=== PATIENT | male | born 1935 | race Caucasian/White ===

== ENCOUNTER 2016-11-10 20:10 | Emergency (ER) | payer MEDICARE ==
[~2016-11-10] VITALS: Ht 180.3 cm; Wt 94.3 kg
[~2016-11-10 20:10] MED LIST: AMLO5TAB2 PO; ASP81CT PO; CHLR25C PO; CHOL10003 PO; DCS100C PO; DILT120T11 PO; FAMO20TA5 PO; ISM30TCR PO; LVT.05T PO; POLY17PO23 PO; SLMFT1E INH; SYNTHROID; TERA5CAP10 PO
--- OUTSIDE RECORDS SUMMARY | 2016-11-10 20:15 | XMS REPORT | Continuity of Care Document ---
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 If you do not see the information that you expected, contact Release of Information in the Health Information Management department at [phone] for further assistance in locating additional records.[facility] Active Allergies and Adverse Reactions Not on File Current Medications Not on file Active Problems Not on file Social History Tobacco Use Types Packs/Day Years Used Date Never Assessed Plan of Care Health Maintenance Due Date Last Done Comments Physical (Comprehensive) 1942 Exam Pertussis Vaccine 1946 Tetanus Vaccine 1952 Shingles Vaccine 1995 Prevnar/Pneumovax (#1) 2000 Influenza Vaccine 06/29/2015 Results from Last 3 Months Not on file
--- NOTE | 2016-11-10 20:23 | ED GI ---
General Chief Complaint: Abdominal/GI Problems Stated Complaint: CONSTIPATION Source of Information: Patient Exam Limitations: No Limitations History of Present Illness Time Seen By Provider: 20:21 Initial Comments to ER with reports of constipation and no significant bowel movement for one week. He attempted digital disimpaction at home this evening and had only a small bowel movement thereafter. He has hemodialysis at [facility] Sunday and had his dialysis today. Fistula on the left arm. Upon arrival to the emergency room he is noted to be febrile at 101.4. He denies abdominal pain. He states that he has had intermittent fevers for the past few days and has also had some weakness in both of his legs. Timing/Duration: 1 Week Severity/Quality: Moderate Radiation: No Radiation Activities at Onset: None Associated Symptoms: No Fever/Chills, No Nausea/Vomiting Allergies and Home Medications Allergies Coded Allergies: NKANo Known Allergies (Verified Allergy, Unknown, 12/03/05) Home Medications Amlodipine Besylate 10 Mg Tablet 10 MG PO DAILY (Reported) Aspirin 81 Mg Chew 81 MG PO DAILY (Reported) Carvedilol 25 Mg Tab 25 MG PO BID (Reported) Chlordiazepoxide Hcl 25 Mg Capsule 25 MG PO HS (Reported) Levothyroxine Sodium 50 Mcg Tablet 50 MCG PO DAILY (Reported) Omeprazole Magnesium 20 Mg Tablet.dr 40 MG PO DAILY (Reported) Polyethylene Glycol 17 Gm Pack 17 GM PO DAILY (Reported) Umeclidinium Brm/Vilanterol Tr 1 Each Blst.w.dev 1 EACH IH (Reported) Review of Systems Constitutional: see HPINo chills EENTM: No Symptoms Reported Respiratory: No Symptoms ReportedDenies Cough Cardiovascular: No Symptoms ReportedDenies Chest Pain Gastrointestinal: See HPI Abdomen DistendedDenies Abdominal Pain, Denies Blood Streaked Stools, ConstipatedDenies Diarrhea, Denies Nausea Genitourinary: No Symptoms Reported Musculoskeletal: no symptoms reported Skin: no symptoms reported Psychiatric/Neurological: No Symptoms Reported Endocrine: No Symptoms Reported Hematologic/Lymphatic: No Symptoms Reported Past Jvrdltu-Qvhgpk-Wjthse Hx Patient Social History Recent Foreign Travel: No Contact w/Someone Who Travel: No Immunizations Up To Date Tetanus Booster (TDap): More than 5yrs PED Vaccines UTD: Yes Date of Pneumonia Vaccine: Apr 02, 2011 Date of Influenza Vaccine: Jul 29, 2012 Surgeries HX Surgeries: Yes Respiratory Hx Respiratory Disorders: Yes Respiratory Disorders: Pneumonia, COPD Cardiovascular Hx Cardiac Disorders: Yes (renal artery aneurysm, h/o high cholesterol but not currently) Neurological Hx Neurological Disorders: No Reproductive System Hx Reproductive Disorders: No Sexually Transmitted Disease: No HIV/AIDS: No Genitourinary Hx Genitourinary Disorders: Yes Genitourinary Disorders: Renal Failure Gastrointestinal Hx Gastrointestinal Disorders: Yes (umbilical hernia) Musculoskeletal Hx Musculoskeletal Disorders: Yes (arthritis in back and neck) Musculoskeletal Disorders: Arthritis Endocrine Hx Endocrine Disorders: Yes (on synthroid) Endocrine Disorders: Hypothyroidsim HEENT HX ENT Disorders: Yes (wears glasses, has hearing aide but it isn't working) HEENT Disorders: Cataract Hearing Impairment: Hard of Hearing Cancer Hx Cancer: No Psychosocial Hx Psychiatric Problems: No (once dx with bipolar since dx has been changed hasn't taken any bipolar med) Integumentary HX Skin/Integumentary Disorder: No Blood Transfusions Hx Blood Disorders: No Physical Exam Vital Signs VS - Last 72 Hours, by Label 11/10/16 20:18 Temp 101.1 Pulse 86 Resp 18 B/P 168/74 Pulse Ox 97 Capillary Refill : General Appearance: WD/WN no apparent distress HEENT: PERRL/EOMI normal ENT inspection Neck: non-tender full range of motion Respiratory: no respiratory distress no accessory muscle use crackles (LLL) Cardiovascular: regular rate, rhythm Gastrointestinal: non tender soft abnormal bowel sounds (hypoactive) Extremities: normal range of motion non-tender Neurologic/Psychiatric: alert normal mood/affect oriented x 3 Skin: normal color warm/dry Progress/Results/Core Measures Results/Orders Lab Results Laboratory Tests Test 11/10/16 20:34 11/10/16 20:35 Range/Units Alanine Aminotransferase (ALT/SGPT) 30 0-55 U/L Albumin 3.5 3.2-4.5 G/DL Alkaline Phosphatase 58 40-136 U/L Anion Gap 16 H 5-14 MMOL/L Aspartate Amino Transf (AST/SGOT) 27 5-34 U/L BUN/Creatinine Ratio 7 Basophils # (Auto) 0.0 0.0-0.1 10^3/uL Basophils (%) (Auto) 0 0-10 % Blood Urea Nitrogen 29 H 7-18 MG/DL Calcium Level 8.8 8.5-10.1 MG/DL Carbon Dioxide Level 24 21-32 MMOL/L Chloride Level 98 98-107 MMOL/L Creatinine 4.23 H 0.60-1.30 MG/DL Eosinophils # (Auto) 0.3 0.0-0.3 10^3/uL Eosinophils (%) (Auto) 3 0-10 % Estimat Glomerular Filtration Rate 14 Glucose Level 189 H 70-105 MG/DL Hematocrit 31 L 40-54 % Hemoglobin 10.1 L 13.3-17.7 G/DL Lactic Acid Level 2.2 *H 0.5-2.0 MMOL/L Lymphocytes # (Auto) 1.0 1.0-4.0 X 10^3 Lymphocytes (%) (Auto) 9 L 12-44 % Mean Corpuscular Hemoglobin 32 25-34 PG Mean Corpuscular Hemoglobin Concent 33 32-36 G/DL Mean Corpuscular Volume 96 80-99 FL Mean Platelet Volume 8.9 7.4-10.4 FL Monocytes # (Auto) 0.9 0.0-1.0 X 10^3 Monocytes (%) (Auto) 8 0-12 % Neutrophils # (Auto) 9.1 H 1.8-7.8 X 10^3 Neutrophils (%) (Auto) 81 H 42-75 % Platelet Count 204 130-400 10^3/uL Potassium Level 3.3 L 3.6-5.0 MMOL/L Red Blood Count 3.20 L 4.35-5.85 10^6/uL Red Cell Distribution Width 13.3 10.0-14.5 % Sodium Level 138 135-145 MMOL/L Total Bilirubin 0.4 0.1-1.0 MG/DL Total Protein 6.5 6.4-8.2 G/DL White Blood Count 11.2 H 4.3-11.0 10^3/uL Lipase 31 8-78 U/L Micro Results Microbiology 11/10/16 Influenza Types A,B Antigen (CHRISTINA) - Final, Complete My Orders Orders-RONALDO CULVER SCRAP BURNER Cbc With Automated Diff (11/10/16 20:20) Influenza A And B Antigens (11/10/16 20:20) Chest Pa/Lat (2 View) (11/10/16 20:20) Ct Abdomen/Pelvis Wo (11/10/16 20:20) Ua Culture If Indicated (11/10/16 20:20) Comprehensive Metabolic Panel (11/10/16 20:20) Saline Lock/Iv-Start (11/10/16 20:20) Blood Culture (11/10/16 20:23) Lactic Acid Analyzer (11/10/16 20:23) Acetaminophen Tablet (Tylenol Tablet) (11/10/16 20:30) Lipase (11/10/16 20:57) Cefepime Injection (Maxipime Injection) (11/10/16 21:15) Cefazolin Injection (Ancef Injection) (11/10/16 21:12) Normal Saline (Velasquez Mini) (Ns (Velasquez (11/10/16 21:12) Cefepime Injection (Maxipime Injection) (11/10/16 21:16) Medications Given in ED Current Medications Medications Dose Ordered Sig/Garry Route Start Time Stop Time Status Last Admin Dose Admin Acetaminophen 1000 mg 1,000 mg ONCE ONCE PO 11/10/16 20:30 11/10/16 20:31 DC 11/10/16 20:46 1,000 MG Cefepime HCl/ Sodium Chloride 50 ml @ 100 mls/hr ONCE ONCE IV 11/10/16 21:15 11/10/16 21:44 DC 11/10/16 21:30 100 MLS/HR Vital Signs/I&O Vital Sign - Last 12Hours 11/10/16 20:18 Temp 101.1 Pulse 86 Resp 18 B/P 168/74 Pulse Ox 97 Diagnostic Imaging Diagonstic Imaging: CT Comments NAME: STEFAN BENAVIDEZ [facility] REC#: [id number] PT STATUS: REG ER : 1935 PHYSICIAN: RONALDO CULVER APRN ADMIT DATE: 11/10/16/ER Draft Date of Exam:11/10/16 CT ABDOMEN/PELVIS WO PROCEDURE: CT abdomen and pelvis without contrast. TECHNIQUE: Multiple contiguous axial images were obtained through the abdomen and pelvis without the use of intravenous contrast. INDICATION: Constipation x5 days. FINDINGS: Noncontrasted study shows consolidated infiltrate in the left lower lobe. There is small pleural effusion on the right with right basilar atelectasis. Liver appears normal. The gallbladder is contracted. Pancreas appears normal. The spleen is normal. The adrenal glands are normal. Kidneys show no evidence of obstruction or calculi. The aorta is atherosclerotic with mild ectasia. The stomach is not distended. Small bowel shows normal caliber. The appendix is normal. The colon shows very little stool or gas present. There is no evidence of constipation or ileus. There is no free air or free fluid. Bladder appears normal. IMPRESSION: 1. Findings consistent with left lower lobe pneumonia. Small right pleural effusion and right basilar atelectasis. 2. There is no evidence of ileus or constipation. Dictated on workstation # [id number] Dict: 11/10/162057 Trans: 11/10/162102 ROXANA [id number] Interpreted by: VIKTOR URBANO MD Electronically signed by: NAME: STEFAN BENAVIDEZ [facility] REC#: [id number] PT STATUS: REG ER : 1935 PHYSICIAN: RONALDO CULVER APRN ADMIT DATE: 11/10/16/ER Draft Date of Exam:11/10/16 CHEST PA/LAT (2 VIEW) INDICATION: Shortness of breath. Comparison with 10/16/2014. FINDINGS: There is severe obstructive interstitial lung disease. There is a consolidated infiltrate in the left lower lobe posteriorly. The heart is enlarged. The upper lungs are clear with no evidence of pulmonary edema. No pneumothorax or pleural effusion. IMPRESSION: 1. Rather severe obstructive interstitial lung disease with superimposed left lower lobe pneumonia. 2. Cardiomegaly with no evidence of pulmonary edema Dictated on workstation # [id number] Dict: 11/10/162104 Trans: 11/10/162107 ROXANA [id number] Interpreted by: VIKTOR URBANO MD Electronically signed by: Departure Communication Time/Spoke to Admitting Phy: 21:29 Communication 2128-Spoke with Dr. Santino Barbosa who agrees with transfer to facility with hemodialysis capabilities given patient's hemodialysis requirements. I spoke with Dr. Johnson, hospitalist from [facility] who agrees to accept the patient in transfer and his help is much appreciated. Cefepime 1gm IV has been given here. Patient has a curb 65 score of 2 considered moderate risk with 6.8 percent 30 day mortality. Short inpatient or outpatient with close follow-up would be recommended. Given the patient's COPD history, hemodialysis and this being Sunday night I would prefer inpatient admission as close follow-up cannot be arranged for at least 48 hours. Patient does wear oxygen at 2 L at night to sleep, awake and alert at this time oxygen saturation drops to 88 percent on room air, 93 percent on 2 L. The patient does agree to this plan. He is alert and very pleasant. Patient's CT scan and chest x-ray have been sent via cloud to [facility] 2226- [facility] declines transport due to the weather/icy roads as they're only transporting emergent patients at this time. Mr. benavidez is stable and had dialysis today and would not be receiving anything at [facility] that he could not receive here. 2228-[facility] declines transport due to weather/icy roads. awaiting call from [facility] in [place]. 2235- [facility] from [place] will come get the patient Impression Impression: Primary Impression: Left lower lobe pneumonia Qualified Code: J18.1 - Lobar pneumonia, unspecified organism Additional Impressions: chronic renal failure requiring hemodialysis COPD (chronic obstructive pulmonary disease) Disposition: XF SHT-TRM HOSP Condition: Stable Departure-Patient Inst. Referrals: DON HARRISON DO (PCP/Family) Primary Care Physician Copy Copies To 1: DON HARRISON PETER J APRN Nov 10, 2016 20:23
[2016-11-10] MEDS ORDERED: AMLO10TA2 PO (20:28)
[2016-11-10] MEDS ORDERED: UMEC1BLS IH (20:28)
[2016-11-10] MEDS ORDERED: CRV25T PO (20:28)
[2016-11-10] MEDS ORDERED: OMEP20TA33 PO (20:28)
[2016-11-10] MEDS ORDERED: ACETAMINOPHEN 500 MG TAB (TYLENOL) PO ONE (20:30)
[2016-11-10 20:46] LABS: BASOPHILS % (AUTO) 0 % (0-10); EOSINOPHILS # (AUTO) 0.3 10^3/uL (0.0-0.3); EOSINOPHILS % (AUTO) 3 % (0-10); LYMPHOCYTES % (AUTO) 9 % (12-44); MEAN CORPUSCULAR HEMOGLOBIN 32 PG (25-34); MEAN CORPUSCULAR HGB CONC 33 G/DL (32-36); MEAN CORPUSCULAR VOLUME 96 FL (80-99); MEAN PLATELET VOLUME 8.9 FL (7.4-10.4); MONOCYTES # (AUTO) 0.9 X 10^3 (0.0-1.0); MONOCYTES % (AUTO) 8 % (0-12); NEUTROPHILS # (AUTO) 9.1 X 10^3 (1.8-7.8); NEUTROPHILS % (AUTO) 81 % (42-75); PLATELET COUNT 204 10^3/uL (130-400); RED CELL DISTRIBUTION WIDTH 13.3 % (10.0-14.5); WHITE BLOOD COUNT 11.2 10^3/uL (4.3-11.0)
--- NOTE | 2016-11-10 21:03 | Diagnostic Imaging Report ---
PROCEDURE: CT abdomen and pelvis without contrast. TECHNIQUE: Multiple contiguous axial images were obtained through the abdomen and pelvis without the use of intravenous contrast. INDICATION: Constipation x5 days. FINDINGS: Noncontrasted study shows consolidated infiltrate in the left lower lobe. There is small pleural effusion on the right with right basilar atelectasis. Liver appears normal. The gallbladder is contracted. Pancreas appears normal. The spleen is normal. The adrenal glands are normal. Kidneys show no evidence of obstruction or calculi. The aorta is atherosclerotic with mild ectasia. The stomach is not distended. Small bowel shows normal caliber. The appendix is normal. The colon shows very little stool or gas present. There is no evidence of constipation or ileus. There is no free air or free fluid. Bladder appears normal. IMPRESSION: 1. Findings consistent with left lower lobe pneumonia. Small right pleural effusion and right basilar atelectasis. 2. There is no evidence of ileus or constipation. Dictated by: Dictated on workstation # [id number]
[2016-11-10 21:07] LABS: ALBUMIN 3.5 G/DL (3.2-4.5); BILIRUBIN,TOTAL 0.4 MG/DL (0.1-1.0); CALCIUM 8.8 MG/DL (8.5-10.1); CREATININE SERUM 4.23 MG/DL (0.60-1.30); POTASSIUM 3.3 MMOL/L (3.6-5.0); TOTAL PROTEIN 6.5 G/DL (6.4-8.2)
--- NOTE | 2016-11-10 21:09 | Diagnostic Imaging Report ---
INDICATION: Shortness of breath. Comparison with 10/16/2014. FINDINGS: There is severe obstructive interstitial lung disease. There is a consolidated infiltrate in the left lower lobe posteriorly. The heart is enlarged. The upper lungs are clear with no evidence of pulmonary edema. No pneumothorax or pleural effusion. IMPRESSION: 1. Rather severe obstructive interstitial lung disease with superimposed left lower lobe pneumonia. 2. Cardiomegaly with no evidence of pulmonary edema Dictated by: Dictated on workstation # [id number]
[2016-11-10] MEDS ORDERED: ceFAZolin 1,000 MG (ANCEF) VIAL ONE (21:12)
[2016-11-10] MEDS ORDERED: NORMAL SALINE (BAXTER MINI) 50 ML IV ONE (21:12)
[2016-11-10] MEDS ORDERED: CEFEPIME INJECTION 2,000 MG in NORMAL SALINE (BAXTER MINI) 50 ML IV ONE (21:15)
[2016-11-10] MEDS ORDERED: CEFEPIME HCL 2 GM (MAXIPIME) VIAL ONE (21:16)
[2016-11-10] MEDS ORDERED: chlordiazePOXIDE 25 MG (LIBRIUM) CAP NON-FORMULARY PO ONE (23:00)
[2016-11-10] MEDS ORDERED: CARVEDILOL 12.5 MG (COREG) TABLET PO ONE (23:00)
[2016-11-10] MEDS ORDERED: ASPIRIN 81 MG CHEW (CHILDREN'S ASA) PO ONE (23:00)
[2016-11-10] MEDS ORDERED: lisINopril 10 MG (PRINIVIL) TAB PO ONE (23:00)
[2016-11-10] MEDS ORDERED: CINA30TA2 PO (23:02)
[2016-11-10] MEDS ORDERED: MELA3TAB PO (23:04)
[2016-11-10] MEDS ORDERED: DIPH25CA79 PO (23:04)
[2016-11-10] MEDS ORDERED: DOCU-143 PO (23:04)
[2016-11-10] MEDS ORDERED: LISI10TA2 PO (23:04)
[2016-11-11 00:47] VITALS: BP 125/64
== END 2016-11-11 00:47 | disposition short-term general hospital (02) ==
LOC: EDUNIT# 20:10 → ER 20:11
DX: J18.9 Pneumonia, unspecified organism (principal); J44.9 Chronic obstructive pulmonary disease, unspecified; I51.7 Cardiomegaly; N18.6 End stage renal disease; Z99.2 Dependence on renal dialysis; Z79.82 Long term (current) use of aspirin; Z79.899 Other long term (current) drug therapy
CPT/HCPCS: 36415; 71020; 74176; 80053; 83605; 83690; 85025; 87040; 87804; 96365

== ENCOUNTER → 2017-03-07 | Outpatient (CLI) | payer MEDICARE ==
[~2017-03-07] MED LIST changes: +AMLO10TA2 PO; +CINA30TA2 PO; +CRV25T PO; +DIPH25CA79 PO; +DOCU-143 PO; +LISI10TA2 PO; +MELA3TAB PO; +OMEP20TA33 PO; +UMEC1BLS IH
--- NOTE | 2017-03-07 16:36 | Diagnostic Imaging Report ---
INDICATION: Neck pain. FINDINGS: AP and lateral views of the cervical spine show anterior bridging osteophytes of C2-C3 and at C4-C5 and C5-C6. Alignment is normal. Disc space is well maintained. There is no prevertebral soft tissue swelling. There are no fractures seen. 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 Dictated by: Dictated on workstation # [id number]
--- NOTE | 2017-03-07 16:38 | Diagnostic Imaging Report ---
INDICATION: Chronic back pain. FINDINGS: AP and lateral views of the thoracic spine show bridging osteophytes throughout the thoracic spine. There is slight scoliotic curvature convex to the right. IMPRESSION: Diffuse ossification of the paraspinous ligaments consistent with either ankylosing spondylitis or diffuse idiopathic skeletal hyperostosis. Dictated by: Dictated on workstation # [id number]
--- NOTE | 2017-03-07 16:51 | Diagnostic Imaging Report ---
INDICATION: Chronic back pain. FINDINGS: AP and lateral views of the lumbar spine show anterior bridging osteophytes throughout the lumbar spine. The alignment is normal. The disc spaces are well maintained. IMPRESSION: Diffuse idiopathic skeletal hyperostosis. No acute abnormality is seen. Dictated by: Dictated on workstation # [id number]
== END ==
LOC: RAD 15:34
PROVIDERS: ATTEND Family Medicine
DX: M54.2 Cervicalgia (principal); M54.6 Pain in thoracic spine; M54.5 Low back pain
CPT/HCPCS: 72040; 72072; 72100

== ENCOUNTER 2017-06-22 13:35 | Outpatient (RCR) | payer MEDICARE | END 2017-06-22 16:11 | disposition home or self-care (01) | PROVIDERS: ATTEND Family Medicine | DX: M54.5 Low back pain (principal) ==

== ENCOUNTER 2019-04-28 07:58 | Outpatient (RCR) | payer MEDICARE ==
[~2019-04-28 07:58] MED LIST changes: -AMLO10TA2 PO; +AMLO10TA7 PO
== END 2019-07-27 | disposition home or self-care (01) ==
LOC: RT 07:58
PROVIDERS: ATTEND Family Medicine
DX: I25.10 Atherosclerotic heart disease of native coronary artery without angina pectoris (principal); R53.83 Other fatigue; R06.00 Dyspnea, unspecified

== ENCOUNTER 2019-11-05 15:15 | Outpatient (RCR) | payer MEDICARE ==
[~2019-11-05 15:15] MED LIST changes: -MELA3TAB PO; +MELA3TAB39 PO
[2019-11-20 14:15] VITALS: BP 115/40
[2019-11-20 15:10] VITALS: BP 100/40
[2019-11-25 14:20] VITALS: BP 106/50
[2019-11-25 15:18] VITALS: BP 100/60
[2019-11-27 14:25] VITALS: BP 100/40
[2019-11-27 15:22] VITALS: BP 80/42
[2019-12-02 14:20] VITALS: BP 125/60
[2019-12-02 15:28] VITALS: BP 120/50
[2019-12-04 14:20] VITALS: BP 100/40
[2019-12-04 15:12] VITALS: BP 90/40
[2019-12-09 14:30] VITALS: BP 130/40
[2019-12-09 15:22] VITALS: BP 100/60
[2019-12-11 14:20] VITALS: BP 150/60
[2019-12-11 15:35] VITALS: BP 100/50
[2019-12-16 14:30] VITALS: BP 134/60
[2019-12-16 15:32] VITALS: BP 105/40
[2019-12-18 14:20] VITALS: BP 125/43
[2019-12-18 15:32] VITALS: BP 118/40
[2019-12-23 14:20] VITALS: BP 110/56
[2019-12-23 15:35] VITALS: BP 100/51
[2019-12-25 14:20] VITALS: BP 120/50
[2019-12-25 15:37] VITALS: BP 100/50
[2020-01-06 14:30] VITALS: BP 116/40
[2020-01-06 15:30] VITALS: BP 100/50
[2020-01-08 14:20] VITALS: BP 120/58
[2020-01-08 15:29] VITALS: BP 118/60
== END 2020-02-03 | disposition home or self-care (01) ==
LOC: RT 15:15
PROVIDERS: ATTEND Family Medicine
DX: J44.9 Chronic obstructive pulmonary disease, unspecified (principal); Z99.81 Dependence on supplemental oxygen
CPT/HCPCS: 99211